=== PATIENT | male | born 1930 | race Caucasian/White ===

== ENCOUNTER 2019-04-01 23:23 | Inpatient (IN) | payer MEDICARE, OTHER ==
[~2019-04-01] VITALS: Ht 175.3 cm; Wt 85.0 kg
[~2019-04-01 23:23] MED LIST: ASPI81TA45 OR; GLYB1TAB29 OR; HUMUINJ IJ; LISI10TA4 OR; SIMV40TA2 OR
[2019-04-02 00:53] VITALS: BP 168/80
[2019-04-02] MEDS ORDERED: MORPHINE 2 MG/ML 1ML VIAL (J2270) IV PRN (01:00)
[2019-04-02] MEDS ORDERED: ONDANSETRON 4MG/2ML VIAL (J2405) IV PRN (01:00)
[2019-04-02 01:36] LABS: HEMATOCRIT 50.1 % (42.0-52.0); HEMOGLOBIN 16.4 g/dl (13.5-17.5); MEAN CORPUSCULAR HEMOGLOBIN 30.3 pg (27.0-33.0); MEAN CORPUSCULAR HGB CONC 32.7 g/dl (32.0-36.5); MEAN CORPUSCULAR VOLUME 92.4 fl (80.0-96.0); PLATELET COUNT, AUTOMATED 180 10^3/uL (150-450); RED BLOOD COUNT 5.42 10^6/uL (4.30-6.10); WHITE BLOOD COUNT 13.7 10^3/uL (4.0-10.0)
[2019-04-02] MEDS ORDERED: PLAV1TAB2 PO (01:48)
[2019-04-02] MEDS ORDERED: PANT40IN4 IV (01:48)
[2019-04-02] MEDS ORDERED: DOCU250C7 PO (01:48)
[2019-04-02] MEDS ORDERED: SIMV40TA20 PO (01:48)
[2019-04-02] MEDS ORDERED: LISI-542 PO (01:48)
[2019-04-02] MEDS ORDERED: MUCI600T31 PO (01:48)
[2019-04-02] MEDS ORDERED: ASPI81TA85 PO (01:48)
[2019-04-02] MEDS ORDERED: CHOL400T PO (01:48)
[2019-04-02] MEDS ORDERED: NOVO1INJ4 SC (01:48)
[2019-04-02] MEDS ORDERED: CIPR1.5I IV (01:48)
[2019-04-02] MEDS ORDERED: D5W/0.9% SODIUM CHLORIDE 1,000 ML IV SCH (02:00)
[2019-04-02 02:10] LABS: ALBUMIN 3.2 GM/DL (3.2-5.2); BILIRUBIN,TOTAL 0.6 MG/DL (0.2-1.0); CALCIUM LEVEL 9.4 MG/DL (8.8-10.2); CREATININE FOR GFR 1.49 MG/DL (0.70-1.30); GLOMERULAR FILTRATION RATE 47.4 (>35); POTASSIUM SERUM 4.4 MEQ/L (3.5-5.1); TOTAL PROTEIN 6.6 GM/DL (6.4-8.2)
[2019-04-02] MEDS ORDERED: METOPROLOL 5 MG/5 ML VIAL IV SCH (02:15)
--- NOTE | 2019-04-02 02:23 | HPEPDOC ---
[facility] Medical History & Physical Date of Admission Apr 02, 2019 Date of Service: Apr 02, 2019 Other Provider Edward Reason Attending Physician: MILLIE HAIR MD History and Physical TIME OF SERVICE: 128am CHIEF COMPLAINT: Abdominal pain HISTORY OF PRESENT ILLNESS: This is an 89 year gentleman who presented to [facility] with complaints of "bothersome" dull 4 out of 10 in severity, lower abdominal pain that began at 7 AM. By 6:30 PM the pain had not resolved, therefore decided to go to the ER for additional evaluation; the pain completely resolved after receiving morphine. Other associated symptoms include constipation, obstipation & 1 episode of nonbloody emesis. His last bowel movement was on March 31 at around 11:30 PM. He denied having fevers. Per discussion with the provider at the outside hospital his temperature was 97.5, pulse 75, blood pressure 180/82, respiratory rate 18, O2 saturation 97% on room air. WBC count was 15.5, hemoglobin, 16.5, platelets 198, sodium was 137, potassium was 4.0, chloride was 102, bicarbonate was 25.7, BUN was 36, creatinine was 1.5, GFR was 47 and anion gap was 9.3. CT of the abdomen without contrast showed dilated bowel loops in the mid abdomen with a transition point close to a collapsed distal bowel. The dilated small bowel was 3.8 cm. The proximal small bowel was also collapsed, raising suspicion for closed loop obstruction. There was no no free air. He had an NG tube placed which drained 800 mls of fluid prior to clamping. 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 Quit smoking in FAMILY HISTORY: Mother of cancer. Father of CHF. 1 of his brothers at the age of 9292 years old ALLERGIES: Please see below. HOME MEDICATIONS: Please see below. PHYSICAL EXAMINATION: VITAL SIGNS: Please see below GENERAL APPEARANCE: Well-nourished, well-developed, not in apparent distress HEENT: No cephalic, atraumatic, NG that has been clamped is in place CARDIOVASCULAR: Regular rate and rhythm. No murmurs, rubs or gallops. Radial pulse at the left is difficult to palpate but at the right is palpable. Pulses at the right lower extremity are difficult to palpate. He does not have lower extremity edema at the right lower extremity LUNGS: Clear to auscultation bilaterally on room air ABDOMEN: Bowel sounds are hyperactive, abdomen is soft and nontender with palpation MUSCULOSKELETAL: Range of motion is intact in all 4 upper extremities and right lower extremity. He has a left AKA INTEGUMENT: Skin is warm and dry. He is not flushed or diaphoretic NEUROLOGICAL: Cranial nerves 2-12 are grossly intact. Speech is not dysarthric PSYCHIATRIC: Alert oriented to person, place and time, able to understand and follow commands, appears comfortable and not in pain LABORATORY DATA: See history of present illness. IMAGING: See history of present illness ASSESSMENT: Mr. Jiménez is an 83-year-old male with past medical history of chronic CAD, CABG, severe PAD, and insulin-dependent diabetes was transferred from [facility] for management of small bowel obstruction. PLAN: 1. SBO Plan: Admit to general medical floor/continue with NG to suction/NPO/D5NS/ morphine PRN for pain & zofran PRN for vomiting/per d/w f/u lactic acid / follow-up repeat KUB and electrolytes in the morning 2. Preoperative Assessment Is difficult to determine his ASA Physical Status because he has a left AKA Revised Cardiac Index to asses risk of MACE from surgery -= 3 points = check pro-BNP Plan: since his RCRI score is 3 we will check a pro-BNP / he reports having multiple vascular procedures but the last was about 6 yrs ago therefore we will hold clopidogrel & ASA / while he is NPO we will give him 15 units of long acting insulin with sliding scale short acting insulin / we will hold lisinopril to reduce the perioperative risk of hypotension (if he has surgery this medication can be resumed on day #2 after surgery ) 3. IDDM Plan: f/u accuchecks & A1C / hypoglycemia protocol / detemir 15 units QHS with sliding scale insulin (he takes Insulin NPH 70/30 - 30 units BID at home) 3. Chronic CAD / severe PAD Plan: Hold aspirin, statin and Plavix for now 4. Chronic hypertension. Plan: hydralazine 10mg PRN for SBP >160 / hold lisinopril DVT prophylaxis with SCDs. Disposition likely home after more than 2 midnight stay Vital Signs Vital Signs Date Time Temp Pulse Resp B/P (MAP) Pulse Ox O2 Delivery O2 Flow Rate FiO2 04/02/19 00:53 98.0 53 18 168/80 (109) 96 Room Air Laboratory Data Labs 24H Laboratory Tests 2 04/02/19 01:27: Nucleated Red Blood Cells % (auto) 0.0, Anion Gap 12, Glomerular Filtration Rate 47.4, Calcium Level 9.4, Total Bilirubin 0.6, Aspartate Amino Transf (AST/SGOT) 19, Alanine Aminotransferase (ALT/SGPT) 21, Alkaline Phosphatase 76, MU-Xcu-U-Type Natriuretic Peptide 3823H, Total Protein 6.6, Albumin 3.2, Albumin/Globulin Ratio 0.94L 04/02/19 02:06: CBC/BMP Laboratory Tests 04/02/19 01:27 Home Medications Scheduled Aspirin (Aspir 81) 81 Mg Tablet.dr, 81 MG PO DAILY Cholecalciferol (Vitamin D3) (Vitamin D3) 400 Unit Tablet, 400 UNIT PO DAILY Ciprofloxacin in 5 % Dextrose (Ciprofloxacn-D5w 400 mg/200 ml) 400 Mg/200 Ml Piggyback, 400 MG IV DAILY GIVEN A ONCE ONE AT [facility] Clopidogrel Bisulfate (Plavix) 75 Mg Tablet, 75 MG PO DAILY Guaifenesin (Mucinex) 600 Mg Tab.er.12h, 600 MG PO BID Insulin NPH Hum/Reg Insulin Hm (Novolin 70-30 100 Unit/ml Vial) 100 Unit/1 Ml Vial, 30 UNITS SC BID Lisinopril (Lisinopril) 5 Mg Tablet, 5 MG PO DAILY Pantoprazole Sodium (Pantoprazole Sodium) 40 Mg Vial, 40 MG IV Q12H GIVEN AT [facility] Simvastatin (Simvastatin) 40 Mg Tablet, 40 MG PO DAILY Scheduled PRN Docusate Sodium (Docusate Sodium) 250 Mg Capsule, 250 MG PO DAILY PRN for CONSTIPATION Allergies Coded Allergies: Penicillins (Verified Allergy, Intermediate, RASH, 04/02/19) A-FIB/CHADSVASC A-FIB History Current/History of A-Fib/PAF?: No Current PO Anticoag Therapy: No MILLIE HAIR MD Apr 02, 2019 02:23
[2019-04-02 02:45] LABS: HEMOGLOBIN A1c 6.2 %
[2019-04-02] MEDS ORDERED: **hydrALAZINE** 10 MG TAB PO PRN (02:45)
[2019-04-02 06:00] VITALS: BP 150/70
[2019-04-02 06:33] LABS: MAGNESIUM LEVEL 1.6 MG/DL (1.8-2.4); TROPONIN I < 0.02 NG/ML (< 0.10)
[2019-04-02] MEDS ORDERED: MAG SULF 1GM/100ML (MAG RUN) 1 GM in IV 1 EA IV ONE (07:45)
--- NOTE | 2019-04-02 08:06 | REP ---
Clinical: Follow up small bowel obstruction. Comparison: None. Findings: Moderately dilated loops of small bowel are appreciated along with moderate fecal stasis through the visualized colon. Nasogastric tube courses below left hemidiaphragm. Bilateral iliac stents noted. Skeletal structures demonstrate degenerative changes. Impression: Bowel gas findings as described above are nonspecific. Electronically Signed by Gus Medel MD 04/02/2019 07:58 A
[2019-04-02] MEDS: PANTOPRAZOLE 40MG INJ (PROTONIX) (C9113) IV SCH ×2 (08:15→20:30)
--- NOTE | 2019-04-02 09:07 | REP ---
Clinical: Shortness of breath. CHF. Comparison: 11/24/2011. Findings: Mediastinum and cardiac silhouette are stable. A nasogastric tube is identified extending below the diaphragm. No cardiomegaly. Atherosclerotic changes to the thoracic aorta noted along with evidence for prior sternotomy and pacemaker. Subtle bibasilar pleuroparenchymal changes may represent chronic and/or mild acute changes. No significant effusion. No consolidation. No pneumothorax. Skeletal structures intact. Impression: Subtle bibasilar acute versus chronic changes. No significant evidence for CHF/pulmonary edema. Electronically Signed by Gus Medel MD 04/02/2019 09:00 A
[2019-04-02] MEDS: NS 1,000 ML IV SCH ×2 (09:12→22:21)
[2019-04-02 09:18] LABS: HEMATOCRIT 50.8 % (42.0-52.0); HEMOGLOBIN 16.4 g/dl (13.5-17.5); MEAN CORPUSCULAR HEMOGLOBIN 30.3 pg (27.0-33.0); MEAN CORPUSCULAR HGB CONC 32.3 g/dl (32.0-36.5); MEAN CORPUSCULAR VOLUME 93.9 fl (80.0-96.0); PLATELET COUNT, AUTOMATED 183 10^3/uL (150-450); RED BLOOD COUNT 5.41 10^6/uL (4.30-6.10); WHITE BLOOD COUNT 13.3 10^3/uL (4.0-10.0)
[2019-04-02 09:18] LABS: BLOOD UREA NITROGEN 36 MG/DL (7-18); CALCIUM LEVEL 8.9 MG/DL (8.8-10.2); CARBON DIOXIDE LEVEL 21 MEQ/L (21-32); CHLORIDE LEVEL 108 MEQ/L (98-107); CREATININE FOR GFR 1.43 MG/DL (0.70-1.30); GLOMERULAR FILTRATION RATE 49.7 (>35); GLUCOSE, FASTING 291 MG/DL (70-100); POTASSIUM SERUM 4.3 MEQ/L (3.5-5.1); SODIUM LEVEL 137 MEQ/L (136-145)
[2019-04-02 10:00] VITALS: BP 118/81
[2019-04-02] MEDS: ASPIRIN 81 MG ENTERIC TAB PO SCH (10:25)
[2019-04-02] MEDS ORDERED: GLUCOSE 4 GM CHEW TABLET PO PRN (12:00)
[2019-04-02] MEDS ORDERED: DEXTROSE 50% 50 ML SYRINGE IV PRN (12:00)
[2019-04-02] MEDS ORDERED: GLUCAGON FOR INJ 1 MG VIAL (J1610) SC PRN (12:00)
[2019-04-02] MEDS: HumaLOG INSULIN (NovoLOG) PER UNIT SC SCH ×2 (12:14→17:31)
[2019-04-02] MEDS ORDERED: LEVEMIR (INSULIN DETEMIR) 1 UNITS/0.01ML SC ONE (12:15)
[2019-04-02 14:00] VITALS: BP 131/76
--- NOTE | 2019-04-02 14:24 | IPNPDOC ---
Text Note Date of Service The patient was seen on 04/02/19. NOTE Subjective: Patient stated that he feels much better in the morning, abdominal pain resolved. He denies fever, chills, nausea, vomiting, shortness of breath, palpitations or dysuria. He had a small bowel movement Objectives: not in apparent distress HEENT:. No cephalic, atraumatic, NG that has been clamped is in place CARDIOVASCULAR: Regular rate and rhythm. LUNGS: Clear to auscultation bilaterally on room air ABDOMEN:. Bowel sounds are hyperactive, abdomen is soft and nontender with palpation NEUROLOGICAL: Cranial nerves 2-12 are grossly intact. Speech is not dysarthric PSYCHIATRIC: Alert oriented to person, place and time, able to understand and follow commands, appears comfortable and not in pain 83-year-old male with past medical history of chronic CAD, CABG, severe PAD, and insulin-dependent diabetes was transferred from [facility] for management of small bowel obstruction. 1. SBO CT of the abdomen without contrast showed dilated bowel loops in the mid abdomen with a transition point close to a collapsed distal bowel. The dilated small bowel was 3.8 cm. The proximal small bowel was also collapsed, raising suspicion for closed loop obstruction. Continue nothing by mouth Surgical team follows him 2. IDDM Insulin sliding scale Detemir twice a day 3.Chronic CAD / severe PAD Continue aspirin, statin and Plavix on hold due to possible surgical intervention 4. Chronic hypertension. Continue home cardioprotective medication VS,Fishbone, I+O VS, Fishbone, I+O Laboratory Tests 04/02/19 01:27 04/02/19 05:32 04/02/19 05:37 Vital Signs Date Time Temp Pulse Resp B/P (MAP) Pulse Ox O2 Delivery O2 Flow Rate FiO2 04/02/19 10:00 97.8 64 14 118/81 (93) 97 Room Air I&O- Last 24 Hours up to 6 AM 04/02/19 06:00 Intake Total 200 ml Output Total 0 ml Balance 200 ml JOHANA MCCABE DO Apr 02, 2019 14:24
--- NOTE | 2019-04-02 15:47 | ECGEPIP ---
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
[2019-04-02] MEDS: lisinopriL 5 MG TAB PO SCH (17:32)
[2019-04-02 18:00] VITALS: BP 158/72
[2019-04-02] MEDS: LEVEMIR (INSULIN DETEMIR) 1 UNITS/0.01ML SC SCH (20:30)
[2019-04-02] MEDS: SIMVASTATIN 40 MG TAB PO SCH (20:30)
[2019-04-02] MEDS ORDERED: HumaLOG INSULIN (NovoLOG) PER UNIT SC SCH (21:00)
[2019-04-02 22:00] VITALS: BP 151/64
[2019-04-03] VITALS (12 sets, daily range): BP systolic 131–174; BP diastolic 60–77
[2019-04-03] MEDS: HumaLOG INSULIN (NovoLOG) PER UNIT SC SCH ×4 (00:30→17:53)
[2019-04-03 06:08] LABS: HEMATOCRIT 45.5 % (42.0-52.0); HEMOGLOBIN 15.5 g/dl (13.5-17.5); MEAN CORPUSCULAR HEMOGLOBIN 31.1 pg (27.0-33.0); MEAN CORPUSCULAR HGB CONC 34.1 g/dl (32.0-36.5); MEAN CORPUSCULAR VOLUME 91.4 fl (80.0-96.0); PLATELET COUNT, AUTOMATED 187 10^3/uL (150-450); RED BLOOD COUNT 4.98 10^6/uL (4.30-6.10); WHITE BLOOD COUNT 11.5 10^3/uL (4.0-10.0)
[2019-04-03 06:27] LABS: CALCIUM LEVEL 8.8 MG/DL (8.8-10.2); CREATININE FOR GFR 1.44 MG/DL (0.70-1.30); GLOMERULAR FILTRATION RATE 49.3 (>35); MAGNESIUM LEVEL 1.9 MG/DL (1.8-2.4); POTASSIUM SERUM 3.9 MEQ/L (3.5-5.1)
--- NOTE | 2019-04-03 08:42 | IPNPDOC ---
Text Note Date of Service The patient was seen on 04/03/19. NOTE No acute events overnight. He had a couple small BMs. Denies nausea or emesis, and his NG output is minimal. He is having a little increased lower abd discomfort this am. No other complaints. VSSAF NAD abd - soft, nt, nD labs - below A) 89y/o male with partial vs. complete SBO P) NGT to LIS sips and chips clamp NG and give a bottle of Mag citrate this am. if he has a large BM then we will dc NG and start diet, if not, then we will repeat imaging. Roberto Calvillo DO VS,Fishbone, I+O VS, Fishbone, I+O Laboratory Tests 04/03/19 05:48 Vital Signs Date Time Temp Pulse Resp B/P (MAP) Pulse Ox O2 Delivery O2 Flow Rate FiO2 04/03/19 06:00 97.8 57 18 173/75 (107) 95 Room Air I&O- Last 24 Hours up to 6 AM 04/03/19 06:00 Intake Total 1160 ml Output Total 750 ml Balance 410 ml MOISÉS CALVILLO DO Apr 03, 2019 08:42
[2019-04-03] MEDS ORDERED: MAGNESIUM CITRATE 300 ML BTL PO ONE (09:00)
[2019-04-03] MEDS: LEVEMIR (INSULIN DETEMIR) 1 UNITS/0.01ML SC SCH ×2 (10:21→10:49)
[2019-04-03] MEDS: lisinopriL 5 MG TAB PO SCH (10:22)
[2019-04-03] MEDS: PANTOPRAZOLE 40MG INJ (PROTONIX) (C9113) IV SCH ×2 (10:22→23:01)
[2019-04-03] MEDS: NS 1,000 ML IV SCH ×3 (10:22→23:08)
[2019-04-03] MEDS: **hydrALAZINE** 10 MG TAB PO PRN (10:22)
[2019-04-03] MEDS: ASPIRIN 81 MG ENTERIC TAB PO SCH (10:23)
--- NOTE | 2019-04-03 12:51 | IPNPDOC ---
Text Note Date of Service The patient was seen on 04/03/19. NOTE Subjective: Patient stated he has been having some moderate abdominal discomf ort. He denies fever, chills, nausea, vomiting, shortness of breath, palpitations or dysuria. Objectives: not in apparent distress HEENT:. No cephalic, atraumatic, NG that has been clamped is in place CARDIOVASCULAR: Regular rate and rhythm. LUNGS: Clear to auscultation bilaterally on room air ABDOMEN:. Bowel sounds are hyperactive, abdomen is soft and nontender with palpation NEUROLOGICAL: Cranial nerves 2-12 are grossly intact. Speech is not dysarthric PSYCHIATRIC: Alert oriented to person, place and time, able to understand and follow commands, appears comfortable and not in pain 83-year-old male with past medical history of chronic CAD, CABG, severe PAD, and insulin-dependent diabetes was transferred from [facility] for management of small bowel obstruction. 1. SBO CT of the abdomen without contrast showed dilated bowel loops in the mid abdomen with a transition point close to a collapsed distal bowel. The dilated small bowel was 3.8 cm. The proximal small bowel was also collapsed, raising suspicion for closed loop obstruction. Continue nothing by mouth Dr Calvillo recommended trial of magnesium citrate. 2. IDDM Glucose levels under control Insulin sliding scale Detemir twice a day 3.Chronic CAD / severe PAD Continue aspirin, statin and Plavix on hold due to possible surgical intervention 4. Chronic hypertension. Hydralazine IV when necessary VS,Fishbone, I+O VS, Fishbone, I+O Laboratory Tests 04/03/19 05:48 Vital Signs Date Time Temp Pulse Resp B/P (MAP) Pulse Ox O2 Delivery O2 Flow Rate FiO2 04/03/19 10:22 164/72 04/03/19 10:00 97.9 67 17 96 Room Air I&O- Last 24 Hours up to 6 AM 04/03/19 06:00 Intake Total 1160 ml Output Total 750 ml Balance 410 ml JOHANA MCCABE DO Apr 03, 2019 12:51
--- NOTE | 2019-04-03 12:58 | CR ---
DATE OF CONSULTATION: 04/02/2019 CHIEF COMPLAINT: Abdominal pain. HISTORY OF PRESENT ILLNESS: Patient is an 89-year-old male, who was originally admitted to [facility] with lower abdominal pains that started early in the morning. After he was given a couple of morphine in the emergency room (ER) and nasogastric (NG) tube was placed, his pain is essentially gone at this point. Labs were relatively normal other than a slightly elevated white count and slightly elevated creatinine, and [facility] CT scan did show signs of possible closed loop bowel obstruction with proximal and distal collapsed bowel; however, no distinct transition point. Because of that he, was transferred here for evaluation. Upon reaching our facility, medicine team evaluated him and repeated all of his labs. Lactic acids normal. White counts already improved. Pain is gone. Abdomen is soft and nontender, and that exam was same as when I saw him as well. He does have the NG tube in. It drained about 800 out of fluid prior to coming here, and he has had minimal output since reaching our facility. No current complaints at this time. He has not had any previous abdominal surgeries and no prior problems with bowel obstructions in the past. No recent illnesses. No recent infections. PAST MEDICAL HISTORY: Diabetes. Peripheral vascular disease. Coronary artery disease. Dyslipidemia. Hypertension. Obesity. PAST SURGICAL HISTORY: Cataract surgery. Common iliac artery stent placement. Pacemaker placement. Quadruple bypass. Left above-knee amputation (AKA) SOCIAL HISTORY: Denies drug, alcohol, tobacco abuse. FAMILY HISTORY: Noncontributory. ALLERGIES TO MEDICATIONS: Please see medical record. REVIEW OF SYSTEMS: Pertinent positives and negatives as stated in the history of present illness (HPI). PHYSICAL EXAM: Generally: Awake, alert, and oriented times three. No acute stress. Vital signs: Temperature 98, pulse 53, respirations 18, blood pressure 168/80, pulse oximetry 96% on room air. HEENT: Pupils equally round and react to light accommodation. Heart: S1, S2, regular rate and rhythm. Lungs: Clear to auscultation bilaterally. Abdomen: Soft, nontender, nondistended. No ventral hernias. Extremities: No clubbing, cyanosis, or edema. Left AKA. LABS: White count 13.7, hemoglobin 16.4, platelets 180, creatinine 1.49, lactic acid 1.4. ASSESSMENT/PLAN: Patient is an 89-year-old male with likely partial versus complete bowel obstruction likely secondary to possible ileus versus random adhesions. Recommendation at this time is to continue with nasogastric (NG) tube decompression. Recommend mobilization in bed as much as possible. I understand it is difficult for him to ambulate, but I have recommended he at least try to roll around in bed. Will continue to monitor him closely. If the abdominal pain returns or if he does not have any improvement or show signs of bowel function over the next 48-72 hours, then we will discuss laparoscopic procedure at that time.
--- NOTE | 2019-04-03 13:35 | REP ---
KUB ABDOMEN AND PELVIS: Two KUB films of the abdomen and pelvis performed and compared to a prior study of 04/02/2019. There is increased distention of air-filled small bowel loops with multiple moderately dilated small bowel loops in the upper abdomen, compatible with small bowel obstruction. Nasogastric tube is seen with sideport in the stomach. The stomach is moderately distended with air. Moderate fecal material is seen in the right colon. Mild scattered air is seen throughout the left colon and there is mild fecal material in the rectosigmoid. Diffuse vascular calcifications are present. There are degenerative changes of the spine. IMPRESSION: Compared to a prior study of 04/02/2019, there is increased distention of small bowel, with multiple moderately dilated air-filled small bowel loops in the upper abdomen. Findings are compatible with small bowel obstruction. Electronically Signed by Colin Silva MD 04/03/2019 04:58 P
[2019-04-03] MEDS ORDERED: MORPHINE 4 MG/ML 1ML VIAL/SYRINGE (J2270) IV ONE (15:30)
--- NOTE | 2019-04-03 18:46 | IPNPDOC ---
Text Note Date of Service The patient was seen on 04/03/19. NOTE He did not tolerate the mag citrate this am. He developed increased abd diste ntion along with increase in pain. Lactic acid increased and xray showed dilated small bowel. When the NG was returned to suction the output was black and bloody. I explained to him that this is concerning to me for ischemic bowel. I recommend that we proceed with diagnostic surgery and possible bowel resection. He understands, and signed consent. Roberto Calvillo DO VS,Saurav, I+O VSSaurav, I+O Laboratory Tests 04/03/19 05:48 Vital Signs Date Time Temp Pulse Resp B/P (MAP) Pulse Ox O2 Delivery O2 Flow Rate FiO2 04/03/19 18:00 97.9 85 18 147/66 (93) 94 Room Air I&O- Last 24 Hours up to 6 AM 04/03/19 06:00 Intake Total 1160 ml Output Total 750 ml Balance 410 ml MOISÉS CALVILLO DO Apr 03, 2019 18:46
[2019-04-03] MEDS ORDERED: LIDOCAINE 2% INJ 100 MG/5 ML SDV (FOR ANES.) As Ordered ONE (19:27)
[2019-04-03] MEDS ORDERED: PROPOFOL 200 MG/20 ML VIAL As Ordered ONE (19:27)
[2019-04-03] MEDS ORDERED: SUCCINYLCHOLINE 100 MG/5 ML SYRINGE (J0330) As Ordered ONE (19:27)
[2019-04-03] MEDS ORDERED: ROCURONIUM BROMIDE 50 MG/5 ML VIAL As Ordered ONE (19:27)
[2019-04-03] MEDS ORDERED: dexameTHASONE 4 MG/ML 1ML VIAL (J1100) As Ordered ONE (19:28)
[2019-04-03] MEDS ORDERED: fentaNYL 100 MCG/2 ML INJECTION (J3010) As Ordered ONE (19:28)
[2019-04-03] MEDS ORDERED: ONDANSETRON 4MG/2ML VIAL (J2405) As Ordered ONE (19:28)
[2019-04-03] MEDS ORDERED: BUPIVACAINE/EPIN 0.25% 30 ML VIAL As Ordered ONE (19:29)
[2019-04-03] MEDS ORDERED: PHENYLephrine HCL 500 MCG/5 ML (100MCG/ML) SYRINGE (J2370) As Ordered ONE (20:03)
[2019-04-03] MEDS ORDERED: SUGAMMADEX SODIUM 500 MG/5 ML VIAL (BRIDION) As Ordered ONE (20:17)
[2019-04-03] MEDS ORDERED: fentaNYL 100 MCG/2 ML INJECTION (J3010) IV PRN (21:15)
[2019-04-03] MEDS ORDERED: METOCLOPRAMIDE INJ 10MG/2ML VIAL (J2765) IV PRN (21:15)
[2019-04-03] MEDS ORDERED: ONDANSETRON 4MG/2ML VIAL (J2405) IV PRN (21:15)
[2019-04-03] MEDS ORDERED: LR 1,000 ML IV SCH (21:15)
[2019-04-03] MEDS ORDERED: oxyCODONE 5MG TAB PO PRN (21:15)
[2019-04-03] MEDS ORDERED: LEVEMIR (INSULIN DETEMIR) 1 UNITS/0.01ML SC ONE (22:45)
[2019-04-03] MEDS: SIMVASTATIN 40 MG TAB PO SCH (23:01)
[2019-04-04] VITALS (9 sets, daily range): BP systolic 121–166; BP diastolic 57–77
[2019-04-04] MEDS: HumaLOG INSULIN (NovoLOG) PER UNIT SC SCH ×5 (00:53→20:38)
[2019-04-04 07:08] LABS: MAGNESIUM LEVEL 1.9 MG/DL (1.8-2.4)
--- NOTE | 2019-04-04 07:21 | RO ---
DATE OF PROCEDURE: 04/03/2019 PREOPERATIVE DIAGNOSIS: Small bowel obstruction. POSTOPERATIVE DIAGNOSIS: Small bowel obstruction. PROCEDURE: Diagnostic laparoscopy with lysis of adhesions and release of small bowel obstruction. SURGEON: Colin Calvillo DO ASSIST: None. ANESTHESIA: General. ESTIMATED BLOOD LOSS: 2 mL. COMPLICATIONS: None. INDICATION FOR PROCEDURE: The patient is an 89-year-old male who presents with a bowel obstruction from [facility]. He initially improved but then showed signs of decline over the last 12 hours. Recommendation was to proceed with diagnostic laparoscopy, possible laparotomy with fixing of small bowel obstruction and possible bowel resection. Risks and benefits of the procedure not limited to, but including bleeding, infection, hernia formation, damage to surrounding structures, need for further surgery were discussed in detail with the patient. Informed consent was obtained and procedure was planned. PROCEDURE: The patient was brought back to operating room 3. After sufficient sedation, the abdomen was sterilely prepped and draped. Next, a time out was done to confirm proper patient and proper procedure. Following that, a 5 mm incision was made in left lower quadrant, Veress needle inserted and the abdomen was inflated to 15 mmHg. Next, Veress needle was removed and a 5 mm OptiView port was used to gain access to the abdomen. Once the abdomen was entered there was dilated loops of small bowel in the mid abdomen and collapsed bowel distally. Another 5 mm port was then placed in the left lower quadrant. The small bowel was then evaluated. There was a tight band of tissue in the right midabdomen that was overlying a loop of small bowel. I was able to get a grasper underneath it and elevate the grasper enough to break the band. As soon as that was done, the bowel bounced back immediately, started to fill up with fluid, the dilated loops started to decompress. There was no signs of any external ischemia or necrosis everything was nice and pink and there was visible peristalsis throughout. The abdomen was then decompressed, skin incisions were closed #4-0 Vicryl subcuticular sutures. The abdomen cleaned and dried. Steri-Strips, 4x4 and tape were applied thus ending procedure.
[2019-04-04 08:22] LABS: CALCIUM LEVEL 8.1 MG/DL (8.8-10.2); CREATININE FOR GFR 1.24 MG/DL (0.70-1.30); GLOMERULAR FILTRATION RATE 58.6 (>35); POTASSIUM SERUM 3.9 MEQ/L (3.5-5.1)
[2019-04-04] MEDS ORDERED: PREVNAR 13 VACCINE SYRINGE (CPT CODE:90670) IM ONE (09:00)
[2019-04-04 09:37] LABS: HEMATOCRIT 39.9 % (42.0-52.0); MEAN CORPUSCULAR HEMOGLOBIN 30.6 pg (27.0-33.0); MEAN CORPUSCULAR HGB CONC 32.6 g/dl (32.0-36.5); MEAN CORPUSCULAR VOLUME 93.9 fl (80.0-96.0); PLATELET COUNT, AUTOMATED 162 10^3/uL (150-450); RED BLOOD COUNT 4.25 10^6/uL (4.30-6.10); WHITE BLOOD COUNT 13.9 10^3/uL (4.0-10.0)
[2019-04-04] MEDS: NS 1,000 ML IV SCH (09:47)
[2019-04-04] MEDS: PANTOPRAZOLE 40MG INJ (PROTONIX) (C9113) IV SCH ×2 (09:47→20:38)
[2019-04-04] MEDS: LEVEMIR (INSULIN DETEMIR) 1 UNITS/0.01ML SC SCH ×2 (09:47→20:37)
[2019-04-04] MEDS: ASPIRIN 81 MG ENTERIC TAB PO SCH (09:55)
[2019-04-04] MEDS: lisinopriL 5 MG TAB PO SCH (09:56)
[2019-04-04] MEDS ORDERED: GLUCOSE 4 GM CHEW TABLET PO PRN (10:15)
[2019-04-04] MEDS ORDERED: DEXTROSE 50% 50 ML SYRINGE IV PRN (10:15)
[2019-04-04] MEDS ORDERED: GLUCAGON FOR INJ 1 MG VIAL (J1610) SC PRN (10:15)
--- NOTE | 2019-04-04 11:49 | IPNPDOC ---
Text Note Date of Service The patient was seen on 04/04/19. NOTE Subjective: Patient tolerated laparoscopy surgery well. He denied any abdominal discomfort. He denies fever, chills, nausea, vomiting, shortness of breath or palpitations. He didn't have any bowel movement since surgery Objective:VITAL SIGNS: Please see below. GENERAL APPEARANCE: Well-nourished, well-developed, not in apparent distress HEENT: Normocephalic, atraumatic. Mucous members moist and pink CARDIOVASCULAR: Regular rate and rhythm. No murmurs, rubs or gallops. Radial pulses are intact. There is no lower extremity edema LUNGS:Diminished lung sounds, ABDOMEN: Abdomen is soft and nontender, no rigidity MUSCULOSKELETAL: Range of motion is intact in all 4 extremities NEUROLOGICAL: Cranial nerves II-12 are grossly intact. Speech is not dysarthric 1. SBO CT of the abdomen without contrast showed dilated bowel loops in the mid abdomen with a transition point close to a collapsed distal bowel. The dilated small bowel was 3.8 cm. The proximal small bowel was also collapsed, raising suspicion for closed loop obstruction. On 04/03/19 laparoscopy with removal of adhesions was performed, no any complications Dr. Calvillo follows him 2. IDDM Glucose levels under control Insulin sliding scale Detemir twice a day 3.Chronic CAD / severe PAD Continue aspirin, statin and Plavix on hold due to possible surgical intervention 4. Chronic hypertension. Hydralazine IV when necessary VS,Fishbone, I+O VS, Fishbone, I+O Laboratory Tests 04/04/19 06:13 04/04/19 06:16 Vital Signs Date Time Temp Pulse Resp B/P (MAP) Pulse Ox O2 Delivery O2 Flow Rate FiO2 04/04/19 10:00 98.2 50 14 121/62 (81) 96 Room Air 04/04/19 06:00 2.0 I&O- Last 24 Hours up to 6 AM 04/04/19 06:00 Intake Total 2130 ml Output Total 1850 ml Balance 280 ml JOHANA MCCABE DO Apr 04, 2019 11:49
[2019-04-04] MEDS: MORPHINE 2 MG/ML 1ML VIAL (J2270) IV PRN ×2 (18:15→20:39)
[2019-04-04] MEDS: SIMVASTATIN 40 MG TAB PO SCH (20:37)
[2019-04-05] VITALS (7 sets, daily range): BP systolic 115–168; BP diastolic 59–74
[2019-04-05] MEDS: **hydrALAZINE** 10 MG TAB PO PRN (02:12)
[2019-04-05] MEDS: MORPHINE 2 MG/ML 1ML VIAL (J2270) IV PRN ×2 (02:12→08:46)
[2019-04-05 06:05] LABS: HEMATOCRIT 43.6 % (42.0-52.0); HEMOGLOBIN 14.4 g/dl (13.5-17.5); MEAN CORPUSCULAR HEMOGLOBIN 30.5 pg (27.0-33.0); MEAN CORPUSCULAR VOLUME 92.4 fl (80.0-96.0); PLATELET COUNT, AUTOMATED 169 10^3/uL (150-450); RED BLOOD COUNT 4.72 10^6/uL (4.30-6.10); WHITE BLOOD COUNT 12.1 10^3/uL (4.0-10.0)
[2019-04-05 06:31] LABS: BLOOD UREA NITROGEN 27 MG/DL (7-18); CALCIUM LEVEL 8.9 MG/DL (8.8-10.2); CARBON DIOXIDE LEVEL 26 MEQ/L (21-32); CHLORIDE LEVEL 112 MEQ/L (98-107); CREATININE FOR GFR 1.17 MG/DL (0.70-1.30); GLOMERULAR FILTRATION RATE > 60.0 (>35); GLUCOSE, FASTING 102 MG/DL (70-100); POTASSIUM SERUM 3.6 MEQ/L (3.5-5.1); SODIUM LEVEL 145 MEQ/L (136-145)
[2019-04-05] MEDS: HumaLOG INSULIN (NovoLOG) PER UNIT SC SCH ×4 (07:30→20:52)
[2019-04-05] MEDS ORDERED: POTASSIUM CHLORIDE 10 MEQ SR TABLET PO ONE (08:00)
[2019-04-05] MEDS: ASPIRIN 81 MG ENTERIC TAB PO SCH (08:45)
[2019-04-05] MEDS: lisinopriL 10 MG TAB PO SCH (08:45)
[2019-04-05] MEDS: PANTOPRAZOLE 40MG INJ (PROTONIX) (C9113) IV SCH ×2 (08:46→20:56)
[2019-04-05] MEDS: LEVEMIR (INSULIN DETEMIR) 1 UNITS/0.01ML SC SCH ×2 (08:46→21:00)
--- NOTE | 2019-04-05 09:09 | IPNPDOC ---
Text Note Date of Service The patient was seen on 04/04/19. NOTE No acute events overnight. He is passing flatus, but no BM yet. Denies nausea or emesis, and he has no abd pains. He is tolerating the NGT clamped. VSSAF NAD abd - soft, nt, nD, incisions c/d/i labs - below A) 89y/o male with complete SBO secondary to adhesions POD#1 s/p lap DANDY P) dc NGT clear diet await return of bowel function. Roberto Calvillo DO VS,Saurav, I+O VS, Saurav, I+O Laboratory Tests 04/05/19 05:50 Vital Signs Date Time Temp Pulse Resp B/P (MAP) Pulse Ox O2 Delivery O2 Flow Rate FiO2 04/05/19 08:46 18 Room Air 04/05/19 06:00 98.0 73 164/74 (104) 95 04/04/19 06:00 2.0 I&O- Last 24 Hours up to 6 AM 04/05/19 06:00 Intake Total 1560 ml Output Total 775 ml Balance 785 ml MOISÉS CALVILLO DO Apr 05, 2019 09:09
--- NOTE | 2019-04-05 09:12 | IPNPDOC ---
Text Note Date of Service The patient was seen on 04/05/19. NOTE No acute events overnight. He is passing flatus, but no BM yet. Denies nausea or emesis. Tolerating the diet, but he is having abd distention and some discomfort again. No fevers or sharp pains. VSSAF NAD abd - soft, slight tenderness diffuse, distended, incisions c/d/i, no rebound or guarding labs - below A) 89y/o male with complete SBO secondary to adhesions POD#2 s/p lap DANDY post-op ileus P) continue clear diet abd xray if he develops nausea and emesis then we will replace the NGT await return of bowel function. Roberto Calvillo DO VS,Saurav, I+O VS, Saurav, I+O Laboratory Tests 04/05/19 05:50 Vital Signs Date Time Temp Pulse Resp B/P (MAP) Pulse Ox O2 Delivery O2 Flow Rate FiO2 04/05/19 08:46 18 Room Air 04/05/19 06:00 98.0 73 164/74 (104) 95 04/04/19 06:00 2.0 I&O- Last 24 Hours up to 6 AM 04/05/19 06:00 Intake Total 1560 ml Output Total 775 ml Balance 785 ml MOISÉS CALVILLO DO Apr 05, 2019 09:12
--- NOTE | 2019-04-05 10:29 | REP ---
Clinical: Abdominal distension. Technique: Supine, upright, and cross-table lateral views of the abdomen and pelvis. Findings: Severe high-grade small bowel obstruction is appreciated. No obvious pneumoperitoneum. Lung bases demonstrate atelectasis and small pleural effusion. Impression: Severe high-grade small bowel obstruction. Electronically Signed by Gus Medel MD 04/05/2019 10:21 A
--- NOTE | 2019-04-05 16:19 | IPNPDOC ---
Text Note Date of Service The patient was seen on 04/05/19. NOTE Subjective: Patient complains of mild abdominal discomfort. He doesn't appetite. No bowel movements. Also, patient developed bradycardia. He denies fever, chills, nausea, vomiting, shortness of breath or palpitations. He didn't have any bowel movement since surgery Objective:VITAL SIGNS: Please see below. GENERAL APPEARANCE: Well-nourished, well-developed, not in apparent distress HEENT: Normocephalic, atraumatic. Mucous members moist and pink CARDIOVASCULAR: Regular rate and rhythm. No murmurs, rubs or gallops. Radial pulses are intact. There is no lower extremity edema LUNGS:Diminished lung sounds, ABDOMEN: Abdomen is soft and mildly, no rigidity MUSCULOSKELETAL: Range of motion is intact in all 4 extremities NEUROLOGICAL: Cranial nerves II-12 are grossly intact. Speech is not dysarthric 1. SBO CT of the abdomen without contrast showed dilated bowel loops in the mid abdomen with a transition point close to a collapsed distal bowel. The dilated small bowel was 3.8 cm. The proximal small bowel was also collapsed, raising suspicion for closed loop obstruction. On 04/03/19 laparoscopy with removal of adhesions was performed, no any complications. Dr. Calvillo recommended NG tube with intermittent suction due to postsurgical ileus. 2. IDDM Glucose levels under control Insulin sliding scale Detemir twice a day 3.Chronic CAD / severe PAD Continue aspirin, statin and Plavix on hold due to possible surgical intervention 4. Chronic hypertension. Hydralazine IV when necessary Bradycardia I talked Dr. Wayne he recommended telemetry. Patient has dual-chamber pacemaker programmed at rate 51 VS,Raymondbone, I+O VS, Fishbone, I+O Laboratory Tests 04/05/19 05:50 Vital Signs Date Time Temp Pulse Resp B/P (MAP) Pulse Ox O2 Delivery O2 Flow Rate FiO2 04/05/19 14:00 97.4 43 16 134/59 (84) 95 Room Air 04/04/19 06:00 2.0 I&O- Last 24 Hours up to 6 AM 04/05/19 06:00 Intake Total 1560 ml Output Total 775 ml Balance 785 ml JOHANA MCCABE DO Apr 05, 2019 16:19
[2019-04-05] MEDS: SIMVASTATIN 40 MG TAB PO SCH (20:56)
[2019-04-06 02:00] VITALS: BP 137/68
[2019-04-06 06:00] VITALS: BP 134/60
[2019-04-06 06:24] LABS: HEMATOCRIT 45.8 % (42.0-52.0); HEMOGLOBIN 14.4 g/dl (13.5-17.5); MEAN CORPUSCULAR HEMOGLOBIN 29.9 pg (27.0-33.0); MEAN CORPUSCULAR HGB CONC 31.4 g/dl (32.0-36.5); PLATELET COUNT, AUTOMATED 170 10^3/uL (150-450); RED BLOOD COUNT 4.82 10^6/uL (4.30-6.10)
[2019-04-06 06:41] LABS: BLOOD UREA NITROGEN 28 MG/DL (7-18); CALCIUM LEVEL 8.7 MG/DL (8.8-10.2); CARBON DIOXIDE LEVEL 26 MEQ/L (21-32); CHLORIDE LEVEL 113 MEQ/L (98-107); CREATININE FOR GFR 1.17 MG/DL (0.70-1.30); GLOMERULAR FILTRATION RATE > 60.0 (>35); GLUCOSE, FASTING 77 MG/DL (70-100); MAGNESIUM LEVEL 2.1 MG/DL (1.8-2.4); POTASSIUM SERUM 3.4 MEQ/L (3.5-5.1); SODIUM LEVEL 146 MEQ/L (136-145)
[2019-04-06] MEDS: HumaLOG INSULIN (NovoLOG) PER UNIT SC SCH ×4 (07:30→20:26)
[2019-04-06] MEDS: ASPIRIN 81 MG ENTERIC TAB PO SCH (08:52)
[2019-04-06] MEDS: lisinopriL 10 MG TAB PO SCH (08:52)
[2019-04-06] MEDS: KCL 40MEQ in NS 1000ML 1,000 ML IV SCH ×2 (08:53→17:42)
[2019-04-06] MEDS: LEVEMIR (INSULIN DETEMIR) 1 UNITS/0.01ML SC SCH ×3 (08:53→20:37)
[2019-04-06] MEDS: PANTOPRAZOLE 40MG INJ (PROTONIX) (C9113) IV SCH ×2 (08:53→20:34)
[2019-04-06] MEDS ORDERED: LEVEMIR (INSULIN DETEMIR) 1 UNITS/0.01ML SC ONE (09:00)
[2019-04-06 10:00] VITALS: BP 136/62
--- NOTE | 2019-04-06 10:24 | ECGEPIP ---
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
--- NOTE | 2019-04-06 12:39 | IPNPDOC ---
Text Note Date of Service The patient was seen on 04/06/19. NOTE Subjective: Patient complains of mild abdominal discomfort. No appetite. No b owel movements. He denies fever, chills, nausea, vomiting, shortness of breath or palpitations. Objective:VITAL SIGNS: Please see below. GENERAL APPEARANCE: Well-nourished, well-developed, not in apparent distress HEENT: Normocephalic, atraumatic. Mucous members moist and pink CARDIOVASCULAR: Regular rate and rhythm. No murmurs, rubs or gallops. Radial pulses are intact. There is no lower extremity edema LUNGS:Diminished lung sounds, ABDOMEN: Abdomen is soft and mildly, no rigidity MUSCULOSKELETAL: Range of motion is intact in all 4 extremities NEUROLOGICAL: Cranial nerves II-12 are grossly intact. Speech is not dysarthric 1. SBO CT of the abdomen without contrast showed dilated bowel loops in the mid abdomen with a transition point close to a collapsed distal bowel. The dilated small bowel was 3.8 cm. The proximal small bowel was also collapsed, raising suspicion for closed loop obstruction. On 04/03/19 laparoscopy with removal of adhesions was performed, no any complications. Pt develops postsurgical ileus. Dr. Calvillo recommended NG tube with intermittent suction due to postsurgical ileus. 2. IDDM Glucose levels under control Insulin sliding scale Detemir twice a day 3.Chronic CAD / severe PAD Continue aspirin, statin and Plavix on hold due to possible surgical interven tion 4. Chronic hypertension. Hydralazine IV when necessary Bradycardia No bradycardia overnight Ileus see above VS,Fishbone, I+O VS, Fishbone, I+O Laboratory Tests 04/06/19 05:38 Vital Signs Date Time Temp Pulse Resp B/P (MAP) Pulse Ox O2 Delivery O2 Flow Rate FiO2 04/06/19 10:00 97.8 70 17 136/62 (86) 94 Room Air 04/04/19 06:00 2.0 I&O- Last 24 Hours up to 6 AM 04/06/19 06:00 Intake Total 400 ml Output Total 2900 ml Balance -2500 ml JOHANA MCCABE DO Apr 06, 2019 12:39
[2019-04-06 14:00] VITALS: BP 136/59
[2019-04-06 18:00] VITALS: BP 114/73
[2019-04-06] MEDS: SIMVASTATIN 40 MG TAB PO SCH (20:34)
[2019-04-06 22:00] VITALS: BP 128/75
[2019-04-07 02:00] VITALS: BP 126/72
[2019-04-07] MEDS: KCL 40MEQ in NS 1000ML 1,000 ML IV SCH ×2 (03:49→14:24)
[2019-04-07 06:00] VITALS: BP 143/72
[2019-04-07 06:56] LABS: HEMATOCRIT 43.7 % (42.0-52.0); HEMOGLOBIN 14.4 g/dl (13.5-17.5); MEAN CORPUSCULAR HEMOGLOBIN 30.6 pg (27.0-33.0); MEAN CORPUSCULAR VOLUME 92.8 fl (80.0-96.0); PLATELET COUNT, AUTOMATED 159 10^3/uL (150-450); RED BLOOD COUNT 4.71 10^6/uL (4.30-6.10); WHITE BLOOD COUNT 11.3 10^3/uL (4.0-10.0)
[2019-04-07 07:17] LABS: BLOOD UREA NITROGEN 23 MG/DL (7-18); CALCIUM LEVEL 8.6 MG/DL (8.8-10.2); CARBON DIOXIDE LEVEL 23 MEQ/L (21-32); CHLORIDE LEVEL 112 MEQ/L (98-107); CREATININE FOR GFR 1.12 MG/DL (0.70-1.30); GLOMERULAR FILTRATION RATE > 60.0 (>35); GLUCOSE, FASTING 140 MG/DL (70-100); POTASSIUM SERUM 4.1 MEQ/L (3.5-5.1); SODIUM LEVEL 143 MEQ/L (136-145)
[2019-04-07] MEDS: HumaLOG INSULIN (NovoLOG) PER UNIT SC SCH ×4 (07:30→20:06)
[2019-04-07] MEDS: lisinopriL 10 MG TAB PO SCH (09:11)
[2019-04-07] MEDS: PANTOPRAZOLE 40MG INJ (PROTONIX) (C9113) IV SCH ×2 (09:11→20:07)
[2019-04-07] MEDS: ASPIRIN 81 MG ENTERIC TAB PO SCH (09:11)
[2019-04-07] MEDS: LEVEMIR (INSULIN DETEMIR) 1 UNITS/0.01ML SC SCH ×2 (09:11→20:07)
[2019-04-07 10:00] VITALS: BP 130/56
--- NOTE | 2019-04-07 12:32 | IPNPDOC ---
Text Note Date of Service The patient was seen on 04/07/19. NOTE Subjective: Patient complains of mild abdominal discomfort. No appetite. No b owel movements. Pt had 2 episodes of vomiting in the morning. He denies fever, chills, nausea, vomiting, shortness of breath or palpitations. Objective:VITAL SIGNS: Please see below. GENERAL APPEARANCE: Well-nourished, well-developed, not in apparent distress HEENT: Normocephalic, atraumatic. Mucous members moist and pink CARDIOVASCULAR: Regular rate and rhythm. No murmurs, rubs or gallops. Radial pulses are intact. There is no lower extremity edema LUNGS: Diminished lung sounds, ABDOMEN: Abdomen is soft and mildly, no rigidity MUSCULOSKELETAL: Range of motion is intact in all 4 extremities NEUROLOGICAL: Cranial nerves II-12 are grossly intact. Speech is not dysarthric 1. SBO CT of the abdomen without contrast showed dilated bowel loops in the mid abdomen with a transition point close to a collapsed distal bowel. The dilated small bowel was 3.8 cm. The proximal small bowel was also collapsed, raising suspicion for closed loop obstruction. On 04/03/19 laparoscopy with removal of adhesions was performed, no any complications. Pt develops postsurgical ileus. Dr. Calvillo recommended NG tube with low suction due to postsurgical ileus. PT/OT Incentive spirometry 2. IDDM Glucose levels under control Insulin sliding scale Detemir twice a day 3.Chronic CAD / severe PAD Continue aspirin, statin and Plavix on hold due to possible surgical intervention 4. Chronic hypertension. Hydralazine IV when necessary Bradycardia No bradycardia overnight Ileus see above Nausea Zofran IV VS,Fishbone, I+O VS, Fishbone, I+O Laboratory Tests 04/07/19 06:26 Vital Signs Date Time Temp Pulse Resp B/P (MAP) Pulse Ox O2 Delivery O2 Flow Rate FiO2 04/07/19 09:11 143/72 04/07/19 06:00 97.7 75 18 93 Room Air 04/04/19 06:00 2.0 I&O- Last 24 Hours up to 6 AM 04/07/19 06:00 Intake Total 2400 ml Output Total 875 ml Balance 1525 ml JOHANA MCCABE DO Apr 07, 2019 12:32
--- NOTE | 2019-04-07 19:33 | IPNPDOC ---
Text Note Date of Service The patient was seen on 04/06/19. NOTE No acute events overnight. He is passing flatus, but no BM yet. Denies nausea or emesis. No fevers or sharp pains. The abd distention and pain is all gone. VSSAF NAD abd - soft, nontender, nondistended, incisions c/d/i, no rebound or guarding labs - below A) 89y/o male with complete SBO secondary to adhesions POD#3 s/p lap DANDY post-op ileus P) clamp NGT clear diet if he develops nausea and emesis then we will return NGT to LIS await return of bowel function. Roberto Calvillo DO VS,Saurav, I+O VS, Saurav, I+O Laboratory Tests 04/07/19 06:26 Vital Signs Date Time Temp Pulse Resp B/P (MAP) Pulse Ox O2 Delivery O2 Flow Rate FiO2 04/07/19 10:00 97.6 80 20 130/56 (80) 98 Room Air 04/04/19 06:00 2.0 I&O- Last 24 Hours up to 6 AM 04/07/19 06:00 Intake Total 2400 ml Output Total 875 ml Balance 1525 ml MOISÉS CALVILLO DO Apr 07, 2019 19:33
[2019-04-07] MEDS: SIMVASTATIN 40 MG TAB PO SCH (20:06)
--- NOTE | 2019-04-07 21:12 | IPN ---
DATE: 04/07/2019 This is a patient of Dr. Calvillo'aly who was admitted on 04/02/2019 with a bowel obstruction. The patient is now 4 days postoperative from laparoscopy and lysis of adhesions with release of his bowel obstruction. The patient apparently developed marked abdominal distension after his diet was resumed following his surgery. He has a nasogastric tube in place which was clamped overnight. He had a small amount of what sounds like bilious emesis this morning and his NG tube was returned to suction but has put out only 100 mL or 200 mL of fluid over the last 6 hours or so. Vital signs show that the patient is afebrile with a pulse in the low 70s and a good blood pressure. Intake and output show that yesterday he had 2500 in with 1400 out. There was 400 recorded from his NG tube. PHYSICAL EXAMINATION: The patient denies any abdominal pain. He is not feeling nauseous. He is alert and oriented. Heart exam shows a regular rhythm. The abdomen is flat. He has bowel sounds present in all four quadrants. There is no tympany to percussion. The abdomen is soft and without significant tenderness throughout. Laboratory studies show white count of 11, hemoglobin of 14, hematocrit of 44 and platelet count of 159,000. Chemistry profile showed sodium 143, potassium 4.1, chloride 112, CO2 of 23, BUN of 23, creatinine 1.1, and a glucose of 140. IMPRESSION: The patient had one small episode of emesis early this morning. He did not complain of abdominal pain or nausea prior to this. He has had only a minimal amount out from the NG tube since the tube was placed back to suction. He does report having flatus. I suspect that his obstruction or ileus has resolved. PLAN: The patient's abdomen will be assessed with a KUB. For right now his NG tube will be left to suction. If the KUB shows no signs of obstruction and the NG continues with little out, then I will remove it later in the day. DILCIA
[2019-04-07 22:00] VITALS: BP 133/60
[2019-04-08] MEDS: KCL 40MEQ in NS 1000ML 1,000 ML IV SCH (05:37)
[2019-04-08 06:00] VITALS: BP 153/70
[2019-04-08 06:42] LABS: HEMATOCRIT 39.3 % (42.0-52.0); HEMOGLOBIN 12.8 g/dl (13.5-17.5); MEAN CORPUSCULAR HEMOGLOBIN 30.5 pg (27.0-33.0); MEAN CORPUSCULAR HGB CONC 32.6 g/dl (32.0-36.5); MEAN CORPUSCULAR VOLUME 93.6 fl (80.0-96.0); PLATELET COUNT, AUTOMATED 146 10^3/uL (150-450); WHITE BLOOD COUNT 9.7 10^3/uL (4.0-10.0)
[2019-04-08 07:08] LABS: BLOOD UREA NITROGEN 19 MG/DL (7-18); CALCIUM LEVEL 7.7 MG/DL (8.8-10.2); CARBON DIOXIDE LEVEL 25 MEQ/L (21-32); CHLORIDE LEVEL 114 MEQ/L (98-107); CREATININE FOR GFR 1.07 MG/DL (0.70-1.30); GLOMERULAR FILTRATION RATE > 60.0 (>35); GLUCOSE, FASTING 79 MG/DL (70-100); POTASSIUM SERUM 3.9 MEQ/L (3.5-5.1); SODIUM LEVEL 143 MEQ/L (136-145)
[2019-04-08] MEDS: HumaLOG INSULIN (NovoLOG) PER UNIT SC SCH ×4 (07:30→21:00)
--- NOTE | 2019-04-08 07:42 | REP ---
SUPINE ABDOMEN: 04/07/2019. CLINICAL HISTORY: Abdominal distension, followup small bowel obstruction. COMPARISON: 04/05/2019. FINDINGS: Two images to encompass the entirety of the abdomen and pelvis for small bowel followup. There is an NG tube curving in the fundus of the stomach and improvement in the small bowel distension since the previous study. Abundant stool in the right colon is decreased significantly. There is gas scattered throughout the colon, and the dilated small bowel loops are all smaller than on the previous study. The largest now is 5.2 cm, previously 6 cm, but many others show much greater decrease. Gas scattered in the colon to the rectosigmoid. Heavy vascular calcifications aorta, iliac, and femoral vessels. There are bilateral wall stents in the common iliac arteries and in the left external iliac region. IMPRESSION: 1. NG tube in the fundus of the stomach with improving appearance of small bowel obstruction pattern. Electronically Signed by Raffaele Shin MD 04/08/2019 08:10 A
[2019-04-08] MEDS: lisinopriL 10 MG TAB PO SCH (08:20)
[2019-04-08] MEDS: ASPIRIN 81 MG ENTERIC TAB PO SCH (08:20)
[2019-04-08] MEDS: PANTOPRAZOLE 40MG INJ (PROTONIX) (C9113) IV SCH (08:20)
[2019-04-08] MEDS: LEVEMIR (INSULIN DETEMIR) 1 UNITS/0.01ML SC SCH ×2 (08:21→21:00)
[2019-04-08 10:00] VITALS: BP 132/52
[2019-04-08 14:00] VITALS: BP 120/57
--- NOTE | 2019-04-08 17:13 | IPNPDOC ---
Text Note Date of Service The patient was seen on 04/08/19. NOTE Subjective: Patient is doing much better today, no abdominal pain. Patient had large bowel movements with no blood. Objective:VITAL SIGNS: Please see below. GENERAL APPEARANCE: Well-nourished, well-developed, not in apparent distress HEENT: Normocephalic, atraumatic. Mucous members moist and pink CARDIOVASCULAR: Regular rate and rhythm. No murmurs, rubs or gallops. Radial pulses are intact. There is no lower extremity edema LUNGS: Diminished lung sounds, ABDOMEN: Abdomen is soft and mildly, no rigidity MUSCULOSKELETAL: Range of motion is intact in all 4 extremities NEUROLOGICAL: Cranial nerves II-12 are grossly intact. Speech is not dysarthric 83-year-old male with past medical history of chronic CAD, CABG, severe PAD, and insulin-dependent diabetes was transferred from [facility] for management of small bowel obstruction. 1. SBO CT of the abdomen without contrast showed dilated bowel loops in the mid abdomen with a transition point close to a collapsed distal bowel. The dilated small bowel was 3.8 cm. The proximal small bowel was also collapsed, raising suspicion for closed loop obstruction. On 04/03/19 laparoscopy with removal of adhesions was performed, no any complications. Pt develops postsurgical ileus. On 04/07/19 NG tube was removed. Oral feeding started. PT/OT Continue Incentive spirometry 2. IDDM Glucose levels under control Insulin sliding scale Detemir twice a day 3.Chronic CAD / severe PAD Continue aspirin, statin and Plavix on hold due to possible surgical intervention 4. Chronic hypertension. Hydralazine IV when necessary Bradycardia No bradycardia overnight Ileus Resolved Nausea Zofran IV VS,Fishbone, I+O VS, Fishbone, I+O Laboratory Tests 04/08/19 06:17 Vital Signs Date Time Temp Pulse Resp B/P (MAP) Pulse Ox O2 Delivery O2 Flow Rate FiO2 04/08/19 08:20 153/70 04/08/19 06:00 98.0 69 18 97 Room Air 04/04/19 06:00 2.0 I&O- Last 24 Hours up to 6 AM 04/08/19 06:00 Intake Total 2240 ml Output Total 1500 ml Balance 740 ml JOHANA MCCABE DO Apr 08, 2019 17:13
[2019-04-08 18:00] VITALS: BP 140/57
[2019-04-08] MEDS: SIMVASTATIN 40 MG TAB PO SCH (21:00)
--- NOTE | 2019-04-08 21:43 | IPN ---
DATE: 04/08/2019 HISTORY: Patient is an 89-year-old man who had been admitted with a bowel obstruction. He is now 5 days postoperative from laparoscopic lysis of adhesions and release of the small bowel obstruction. Postoperatively he developed marked abdominal distension with extensive air throughout the small and large bowel. This has gradually resolved. His nasogastric tube was removed yesterday after it had been clamped overnight. He has tolerated some clear liquids. He reports having had a bowel movement and denies any nausea or vomiting today. VITAL SIGNS: Show that he has been afebrile over the past 24 hours. His pulse is approximately 70 and his blood pressure is in the 120s to 150s systolic. Intake and output shows that yesterday he had 1940 in with only 540 of that as oral. His urine output was approximately a liter. PHYSICAL EXAMINATION: The patient is lying quietly on the hospital bed. He looks quite comfortable and is alert and pleasant today. He denies any abdominal pain. Heart exam shows a regular rhythm. The abdomen is perhaps mildly full but soft and nontender. He has active bowel sounds present. IMPRESSION: The patient appears to have resolved his bowel obstruction and ileus now. He tolerated clear liquids without difficulty. PLAN: The patient will be advanced to a regular diet. I will stop his IV fluid. If he tolerates the diet well, I would anticipate he would be ready for discharge in the near future and Dr. Calvillo can reassess him in the morning. DILCIA
[2019-04-08 22:00] VITALS: BP 147/57
[2019-04-09 02:00] VITALS: BP 141/63
[2019-04-09 05:15] VITALS: BP 150/90
[2019-04-09 06:00] VITALS: BP 123/66
[2019-04-09 06:24] LABS: HEMATOCRIT 41.2 % (42.0-52.0); HEMOGLOBIN 13.6 g/dl (13.5-17.5); MEAN CORPUSCULAR HEMOGLOBIN 30.4 pg (27.0-33.0); MEAN CORPUSCULAR VOLUME 92.2 fl (80.0-96.0); PLATELET COUNT, AUTOMATED 160 10^3/uL (150-450); RED BLOOD COUNT 4.47 10^6/uL (4.30-6.10); WHITE BLOOD COUNT 10.3 10^3/uL (4.0-10.0)
[2019-04-09 06:42] LABS: CALCIUM LEVEL 7.7 MG/DL (8.8-10.2); CREATININE FOR GFR 1.22 MG/DL (0.70-1.30); GLOMERULAR FILTRATION RATE 59.7 (>35); POTASSIUM SERUM 4.1 MEQ/L (3.5-5.1)
[2019-04-09] MEDS ORDERED: PANTOPRAZOLE 40MG TAB (PROTONIX) PO SCH (09:00)
--- NOTE | 2019-04-09 09:10 | IPNPDOC ---
Text Note Date of Service The patient was seen on 04/09/19. NOTE No acute events over the weekend. Denies nausea or emesis. No fevers or sharp pains. The abd distention and pain is all gone. VSSAF NAD abd - soft, nontender, nondistended, incisions c/d/i, no rebound or guarding labs - below A) 89y/o male with complete SBO secondary to adhesions Post op s/p lap DANDY post-op ileus resolved P) reg diet d/c home PT eval follow up as needed Roberto Calvillo DO VS,Saurav, I+O VS, Alejandrae, I+O Laboratory Tests 04/09/19 06:01 Vital Signs Date Time Temp Pulse Resp B/P (MAP) Pulse Ox O2 Delivery O2 Flow Rate FiO2 04/09/19 06:00 98.0 86 17 123/66 (85) 96 04/09/19 02:00 Room Air 04/04/19 06:00 2.0 I&O- Last 24 Hours up to 6 AM 04/09/19 05:59 Intake Total 1725 ml Output Total 1715 ml Balance 10 ml MOISÉS CALVILLO DO Apr 09, 2019 09:10
[2019-04-09 10:00] VITALS: BP 126/56
[2019-04-09] MEDS: HumaLOG INSULIN (NovoLOG) PER UNIT SC SCH ×2 (10:05→12:37)
[2019-04-09] MEDS: LEVEMIR (INSULIN DETEMIR) 1 UNITS/0.01ML SC SCH (10:05)
[2019-04-09 10:06] VITALS: BP 127/56
[2019-04-09] MEDS: lisinopriL 10 MG TAB PO SCH (10:06)
[2019-04-09] MEDS: ASPIRIN 81 MG ENTERIC TAB PO SCH (10:06)
[2019-04-09] MEDS ORDERED: PANT40TA3 PO (12:27)
--- NOTE | 2019-04-09 18:53 | DS.PDOC ---
Discharge Summary General Date of Admission Apr 02, 2019 at 00:50 Date of Discharge 04/09/19 Discharge Summary PROCEDURES PERFORMED DURING STAY: Surgical intervention for small bowel obstruction ADMITTING DIAGNOSES: .SBO IDDM Chronic CAD / severe PAD Chronic hypertension Ileus Nausea DISCHARGE DIAGNOSES: SBO IDDM Chronic CAD / severe PAD Chronic hypertension Ileus Nausea COMPLICATIONS/CHIEF COMPLAINT: SBO. HISTORY OF PRESENT ILLNESS: Patient is an 89-year-old male, who was originally admitted to [facility] with lower abdominal pains that started early in the morning. After he was given a couple of morphine in the emergency room (ER) and nasogastric (NG) tube was placed, his pain is essentially gone at this point. Labs were relatively normal other than a slightly elevated white count and slightly elevated creatinine, and [facility] CT scan did show signs of possible closed loop bowel obstruction with proximal and distal collapsed bowel; however, no distinct transition point. Because of that he, was transferred here for evaluation. Upon reaching our facility, medicine team evaluated him and repeated all of his labs. Lactic acids normal. White counts already improved. Pain is gone. Abdomen is soft and nontender, and that exam was same as when I saw him as well. He does have the NG tube in. It drained about 800 out of fluid prior to coming here, and he has had minimal output since reaching our facility. No current complaints at this time. He has not had any previous abdominal surgeries and no prior problems with bowel obstructions in the past. No recent illnesses. No recent infections. HOSPITAL COURSE: During hospital stay the following issue addressed 1. SBO CT of the abdomen without contrast showed dilated bowel loops in the mid abdomen with a transition point close to a collapsed distal bowel. The dilated small bowel was 3.8 cm. The proximal small bowel was also collapsed, raising suspicion for closed loop obstruction. On 04/03/19 laparoscopy with removal of adhesions was performed, no any complications. Pt develops postsurgical ileus. On 04/07/19 NG tube was removed. Ileus resolved. Oral feeding started. 2. IDDM Glucose levels under control Insulin sliding scale Detemir twice a day 3.Chronic CAD / severe PAD Patient received cardioprotective medications 4. Chronic hypertension. Hydralazine IV when necessary Bradycardia No bradycardia overnight Ileus Resolved Nausea Zofran IV DISCHARGE MEDICATIONS: Please see below. ALLERGIES: Please see below. PHYSICAL EXAMINATION ON DISCHARGE: VITAL SIGNS: Please see below. Generally: Awake, alert, and oriented times three. No acute stress. HEENT: Pupils equally round and react to light accommodation. Heart: S1, S2, regular rate and rhythm. Lungs: Clear to auscultation bilaterally. Abdomen: Soft, nontender, nondistended. No ventral hernias. Extremities: No clubbing, cyanosis, or edema. Left AKA. LABORATORY DATA: Please see below. IMAGING: CLINICAL HISTORY: Abdominal distension, followup small bowel obstruction. COMPARISON: 04/05/2019. FINDINGS: Two images to encompass the entirety of the abdomen and pelvis for small bowel followup. There is an NG tube curving in the fundus of the stomach and improvement in the small bowel distension since the previous study. Abundant stool in the right colon is decreased significantly. There is gas scattered throughout the colon, and the dilated small bowel loops are all smaller than on the previous study. The largest now is 5.2 cm, previously 6 cm, but many others show much greater decrease. Gas scattered in the colon to the rectosigmoid. Heavy vascular calcifications aorta, iliac, and femoral vessels. There are bilateral wall stents in the common iliac arteries and in the left external i liac region. IMPRESSION: 1. NG tube in the fundus of the stomach with improving appearance of small bowel obstruction pattern. PROGNOSIS: Favorable ACTIVITY: [As tolerated]. DIET: Cardiac DISCHARGE PLAN: Follow-up with PCP DISPOSITION: 01 Home, Self-Care. DISCHARGE CONDITION: Stable TIME SPENT ON DISCHARGE: Greater than 20 minutes. Vital Signs/I&Os Vital Signs Date Time Temp Pulse Resp B/P (MAP) Pulse Ox O2 Delivery O2 Flow Rate FiO2 04/09/19 10:06 127/56 04/09/19 10:00 98.4 67 20 96 Room Air 04/04/19 06:00 2.0 I&O- Last 24 Hours up to 6 AM 04/09/19 06:00 Intake Total 1425 ml Output Total 1715 ml Balance -290 ml Laboratory Data Labs 24H Laboratory Tests 2 04/08/19 20:21: Bedside Glucose (Misc Panel) 235H 04/09/19 06:01: Nucleated Red Blood Cells % (auto) 0.0, Anion Gap 5L, Glomerular Filtration Rate 59.7, Calcium Level 7.7L 04/09/19 11:36: Bedside Glucose (Misc Panel) 175H CBC/BMP Laboratory Tests 04/09/19 06:01 FSBS Laboratory Tests Test 04/08/19 20:21 04/09/19 11:36 Range/Units Bedside Glucose (Misc Panel) 235 175 83-110 MG/DL Discharge Medications Scheduled Aspirin (Aspir 81) 81 Mg Tablet.dr, 81 MG PO DAILY, (Reported) Cholecalciferol (Vitamin D3) (Vitamin D3) 400 Unit Tablet, 400 UNIT PO DAILY, (Reported) Clopidogrel Bisulfate (Plavix) 75 Mg Tablet, 75 MG PO DAILY, (Reported) Guaifenesin (Mucinex) 600 Mg Tab.er.12h, 600 MG PO BID, (Reported) Insulin NPH Hum/Reg Insulin Hm (Novolin 70-30 100 Unit/ml Vial) 100 Unit/1 Ml Vial, 30 UNITS SC BID, (Reported) Lisinopril (Lisinopril) 5 Mg Tablet, 5 MG PO DAILY, (Reported) Pantoprazole Sodium (Pantoprazole Sodium) 40 Mg Tablet.dr, 40 MG PO DAILY Simvastatin (Simvastatin) 40 Mg Tablet, 40 MG PO DAILY, (Reported) Scheduled PRN Docusate Sodium (Docusate Sodium) 250 Mg Capsule, 250 MG PO DAILY PRN for CONSTIPATION, (Reported) Allergies Coded Allergies: Penicillins (Verified Allergy, Intermediate, RASH, 04/02/19) JOHANA MCCABE DO Apr 09, 2019 18:53
== END 2019-04-09 13:41 | disposition home or self-care (01) | DRG 336 ==
LOC: M MSPAV 04-02 00:50
PROVIDERS: ADMIT Internal Medicine; ATTEND Internal Medicine
PROC: 0DN84ZZ Release Small Intestine, Percutaneous Endoscopic Approach (ICD-10-PCS; principal; 2019-04-03 19:00)
DX: K56.52 Intestinal adhesions [bands] with complete obstruction (principal); K91.89 Other postprocedural complications and disorders of digestive system; E11.65 Type 2 diabetes mellitus with hyperglycemia; Z89.612 Acquired absence of left leg above knee; I25.10 Atherosclerotic heart disease of native coronary artery without angina pectoris; E78.5 Hyperlipidemia, unspecified; Z95.0 Presence of cardiac pacemaker; I73.9 Peripheral vascular disease, unspecified; Z95.1 Presence of aortocoronary bypass graft; Z98.41 Cataract extraction status, right eye; Z98.42 Cataract extraction status, left eye; I10 Essential (primary) hypertension; E66.9 Obesity, unspecified; Z68.27 Body mass index [BMI] 27.0-27.9, adult; Z79.82 Long term (current) use of aspirin; Z79.4 Long term (current) use of insulin; Z79.899 Other long term (current) drug therapy; Z88.0 Allergy status to penicillin; R00.1 Bradycardia, unspecified